=== PATIENT | female | born 1940 | race Caucasian/White ===

== ENCOUNTER 2021-02-06 09:44 | Outpatient (CLI) | payer MEDICARE, BC ==
[2021-02-06] VITALS (21 sets, daily range): BP systolic 127–163; BP diastolic 56–85
[~2021-02-06 09:44] MED LIST: ANAS1TAB10 PO; ATOR20TA66 PO; CARV6.253 PO; DABI150C PO; EXEN5PEN2 SQ; FLEC100T PO; FURO-150 PO; GLIM4TAB7 PO; HYDR-4383 PO; OLME40TA14 PO; ONDA4TAB12 PO; POTA8TAB46 PO
== END 2021-02-06 23:59 | disposition home or self-care (01) ==
LOC: CARD DIAG 09:44
PROVIDERS: ATTEND Internal Medicine Cardiovascular Disease
DX: R42 Dizziness and giddiness (principal)
CPT/HCPCS: 93660